=== PATIENT | male | born 1945 | race African-American/Black ===

== ENCOUNTER → 2020-01-15 | Outpatient (CLI) | payer MEDICARE, OTHER ==
[2015-11-02 16:55] VITALS: BP 139/65
[~2020-01-15] MED LIST: ASPI-482 PO; LATA2.5D3 OP; METO25TA2 PO; MULT-658 PO; SIMV20TA18 PO; TRIA50CA3 PO
--- NOTE | 2020-01-15 11:30 | KCIC ---
MRI Lumbar Spine without contrast History: Lumbar radiculitis, right leg pain for one month Technique: Multiplanar, multi sequential noncontrast MR imaging was performed of the lumbar spine. Comparison: None Findings: Lumbar vertebral body stature is overall maintained. There is advanced degenerative disc disease at L4-5, mild to moderate degenerative disc disease at L2-3 and L3-4. There is negligible anterior spondylolisthesis at L2-3. Conus terminates at L1-2. There is degenerative endplate change at L4-5, minimal inferior L4 endplate edema likely reactive/degenerative in etiology. L1-L2: This level was not included on the axial images. Neural foramina and spinal canal are adequate. L2-L3: There is bulge/broad protrusion about 4 to 5 mm AP. There is brtg-gt-[id number] buckling of the ligamentum flavum and mild facet degenerative change. There is hhtu-iv-hhuesccn narrowing of the far lateral recesses bilaterally. There is ybfh-ej-dpyqigqk neural foramina compromise bilaterally. L3-L4: There is disc osteophyte complex and bulge/broad protrusion about 3 to 4 mm AP. There is mild indentation upon the ventral thecal sac somewhat greater in the far left lateral recess. There is mild to moderate narrowing of the far left lateral recess, minimally on the right. There is kftr-ix-sozubkoz neural foramina compromise bilaterally somewhat greater on the right, contact of the undersurfaces exiting L3 nerve roots bilaterally greater on the right extending to the proximal extraforaminal region. L4-L5: There is disc osteophyte complex contributes to mild narrowing the far right lateral recess. There is disc osteophyte complex and superimposed extrusion extending above the intervertebral disc space in the proximal extraforaminal region. Extrusion is estimated about 4 to 5 mm CC by 5 mm AP by about 10 mm transverse. There is fairly severe narrowing greater distally of the right neural foramen, also significant impingement of the extraforaminal right L4 nerve root by extrusion. There is mild narrowing of the left neural foramen greater distally with contact of the undersurface exiting left L4 nerve root by disc osteophyte complex extending to the proximal extraforaminal region without significant displacement. L5-S1: Spinal canal and neural foramina are adequate. Impression: 1. There is advanced degenerative disc disease L4-5, to a lesser degree at L2-3 and L3-4. There is multilevel lumbar spondylosis. 2. There is extraforaminal extrusion extending above the intervertebral disc space at the L4-5 level with significant impingement of the exiting right L4 nerve root in the extraforaminal region. There is lumbar neural foramina compromise as described most notable on the right at L4-5, to a lesser degree bilaterally at L3-4 and L2-3. 3. There is variable lateral stenosis as stated greatest bilaterally at L2-3, left greater than right at L3-4, and on the right at L4-5. 4. There is negligible anterior spondylolisthesis at L2-3. Electronically signed by: Ilya Valentine MD (01/15/2020 11:28 AM) [id number]
== END | disposition home or self-care (01) ==
LOC: KCIC MRI 10:02
PROVIDERS: ATTEND Physical Medicine & Rehabilitation
DX: M51.16 Intervertebral disc disorders with radiculopathy, lumbar region (principal); M47.26 Other spondylosis with radiculopathy, lumbar region; M48.061 Spinal stenosis, lumbar region without neurogenic claudication; M25.78 Osteophyte, vertebrae; M43.16 Spondylolisthesis, lumbar region
CPT/HCPCS: 72148

== ENCOUNTER → 2020-02-14 | Outpatient (CLI) | payer MEDICARE, OTHER ==
[2015-11-02 16:55] VITALS: BP 139/65
--- NOTE | 2020-02-14 11:58 | PAIN ---
DATE OF SERVICE: 02/14/2020 INITIAL CONSULTATION FOR PAIN CLINIC CHIEF COMPLAINT: Low back and right lower extremity pain. HISTORY OF PRESENT ILLNESS: This is a 74-year-old male with pain, history of about 3 months, in low back and right lower extremity. The patient reports no significant injury or action he is aware of to bring it on, but the pain is just there with natural normal day-to-day activities. The patient reports that since that time, the pain has gotten a lot better. He did see Dr. Nj for some physical therapy and this helped with stretching and strength exercises, he has also been walking on treadmill, which is helping as well. The patient reports the pain now is intermittent in intensity with some tingling in the right leg, posterior gluteus, lateral thigh, anterior thigh, lateral posterior calf and lateral right thigh as well as the medial calf to some extent as well. The patient reports it stops at the ankle and is not going to his foot. The patient reports some tingling in the leg, intermittent in intensity, worse with walking, standing, changing positions, worse significant with walking, but now has been increasingly getting better. The patient reports it does not affect his bowel or bladder control, currently does not affect his ability to walk. The patient did have an MRI scan of the lumbar spine showing multilevel degenerative changes throughout the lumbar distribution with extraforaminal extrusion extending above the intervertebral disk space at L4-L5 level with significant impingement on the exiting right L4 nerve root and extraforaminal region. The patient rates his disability rating from 0 to 10, 10 being the worst, is currently a 2 on a scale of 10 with family and home responsibilities, 2 with sexual behavior, 0 with all other categories. The patient reports no loss of motor function, no bowel or bladder incontinence or other complaints. PAST MEDICAL HISTORY: Significant for hypertension, arthritis. PREVIOUS SURGERY: Include cataract extraction and the heart stent placement. CURRENT MEDICATIONS: Include daily baby aspirin, Centrum, metoprolol, simvastatin, and latanoprost. ALLERGIES: The patient has no known drug allergies. FAMILY HISTORY: Significant for no major medical problems or conditions he is aware of. SOCIAL HISTORY: The patient does not smoke, does not drink alcohol, does not use any illegal, illicit or recreational drugs. He is . Lives locally in [place], [place], and is currently retired. REVIEW OF SYSTEMS: The patient's review of systems is positive for those items mentioned in history of present illness. All systems reviewed and otherwise negative. It is complete, full and well documented on the patient's chart. PHYSICAL EXAMINATION: VITAL SIGNS: The patient's blood pressure 151/68, pulse 56, respirations 18, temperature is 98.3 degrees Fahrenheit, height is 5 feet 5 inches, weight is 133 pounds. GENERAL: The patient is awake, alert, oriented, appropriate, very pleasant demeanor. HEENT: Shows normocephalic, atraumatic. Extraocular movements are intact and symmetrical. Oral cavity shows mucous membranes moist and pink. Dentition is intact. NECK: Shows anterior throat supple without palpable lymphadenopathy noted. Swallow reflex symmetrical. CHEST: Shows normal on inspection. Breath sounds are clear bilaterally. HEART: Shows S1, S2 clear. ABDOMEN: Soft, nontender, nondistended. No palpable organomegaly is noted. There is no rebound or guarding demonstrated. BACK: Shows spine grossly in the midline. Normal appearing thoracic kyphosis and some minor flattening of lumbar lordotic curvature. Lumbar paraspinous muscle shows symmetrical on inspection, with palpation shows some moderate tenderness diffusely bilaterally, but only diffusely without significant radiation. The patient has good rotational motion of lumbar spine, both laterally greater than 10 degrees right and left as well as extension greater than 10 degrees, forward flexion 45 degrees without pain. No tenderness over the spinous processes, sacrum or sacroiliac regions. EXTREMITIES: Lower extremities show deep tendon reflexes at 2+ in the patellar, 1+ tendo-calcaneus tendons are equal. Motor exam is strong with 5/5 dorsiflexion, extension, quadriceps and hamstring flexion symmetrical. Peripheral pulses are 1+ posterior tibia. No peripheral edema is noted. Straight leg raise noted to be negative for reproduction of radicular symptoms bilaterally as are Gaenslen's and Alvaro's maneuvers negative bilaterally. The patient is able to stand, stand on the toes without difficulty or loss of balance, walks with a normal-appearing gait, does not appear to favor the right or left lower extremity, not using any assistive devices to ambulate. SKIN: Shows warm and dry, good turgor. No edema. No sores, rashes or bruising throughout. IMPRESSION: 1. This is a 74-year-old male with a history of low back and right lower extremity pain, better on its own here recently with some rest and physical therapy exercises. 2. MRI scan of lumbar spine as noted. 3. Arthritis. 4. Hypertension. PLAN: Options were discussed with the patient including conservative medical managements, physical therapies, interventional techniques and as he is doing fairly well now with very few symptoms, we will wait and increase his activity level with maintaining stretching and strength exercises, also consistent walking daily and exercise as he has been doing. If pain returns, we do discuss potential interventional techniques, a lumbar epidural steroid injection with description as well as anatomical models to describe the procedure. The patient is interested in this if the pain does return. We will have him increase activity as tolerated. Follow up at this time on as needed basis. BETTE CABA MD DR: OZZIE/krysten JOB#: [id number] / [id number]
== END | disposition home or self-care (01) ==
LOC: PNCL 10:01
PROVIDERS: ATTEND Anesthesiology
DX: M54.5 Low back pain (principal); M79.661 Pain in right lower leg; M19.90 Unspecified osteoarthritis, unspecified site; I10 Essential (primary) hypertension; Z98.890 Other specified postprocedural states; Z79.899 Other long term (current) drug therapy
CPT/HCPCS: G0463

== ENCOUNTER → 2020-07-10 | Outpatient (CLI) | payer MEDICARE, OTHER ==
[2015-11-02 16:55] VITALS: BP 139/65
== END ==
LOC: LAB 11:02
PROVIDERS: ATTEND Internal Medicine Gastroenterology
DX: Z01.812 Encounter for preprocedural laboratory examination (principal); Z20.828 Contact with and (suspected) exposure to other viral communicable diseases
CPT/HCPCS: U0003

== ENCOUNTER → 2020-07-13 | Day surgery (SDC) | payer MEDICARE, OTHER ==
[~2020-07-13] MED LIST changes: +ATOR40TA59 PO; +IV RINGERS,LACTATED 1000ML 1,000 ML IV SCH; +LIDOCAINE 2% PF 5 ML VIAL. ONE; +PROPOFOL 10 MG/ML (20ML) VIAL. IV ONE
--- NOTE | 2020-07-13 14:09 | PDOC4 ---
PROCEDURE Procedure Colonoscopy Indication: h/o polyps, last 7 years ago. Meds: per anesthesia Findings: BOBY normal. --'Scope advanced to cecum. Mucosa normal. No diverticula, polyps, etc. Internal hemorrhoids on retroflex. Froilan. well. IMP: Internal hemorrhoids, otherwise normal to cecum REC: Could consider one more exam in 5-7 years. Resume meds, diet as pre-procedure. F/u with me prn. GIL SANTIAGO MD Jul 13, 2020 14:09
[2020-07-13 14:20] VITALS: BP 105/54
== END | disposition home or self-care (01) ==
LOC: ENDOS 12:58
PROVIDERS: ATTEND Internal Medicine Gastroenterology
DX: Z12.11 Encounter for screening for malignant neoplasm of colon (principal); K64.8 Other hemorrhoids; I25.2 Old myocardial infarction; E78.00 Pure hypercholesterolemia, unspecified; M19.90 Unspecified osteoarthritis, unspecified site; I10 Essential (primary) hypertension; I25.10 Atherosclerotic heart disease of native coronary artery without angina pectoris; M48.061 Spinal stenosis, lumbar region without neurogenic claudication; M25.78 Osteophyte, vertebrae; Z86.010 Personal history of colon polyps; Z87.891 Personal history of nicotine dependence; Z79.899 Other long term (current) drug therapy; Z98.890 Other specified postprocedural states; Z98.42 Cataract extraction status, left eye; Z98.41 Cataract extraction status, right eye; Z98.61 Coronary angioplasty status
CPT/HCPCS: 36430; G0105; J2704; 45378